=== PATIENT | male | born 1980 | race Caucasian/White ===

== ENCOUNTER 2017-03-25 10:10 | Emergency (ER) | payer SELFPAY ==
[~2017-03-25] VITALS: Ht 170.2 cm; Wt 63.5 kg
--- OUTSIDE RECORDS SUMMARY | 2017-03-25 10:17 | External Medical Summary Rpt | CCD ---
Author Author , LIBBY SOUZA Address Unknown Phone [email or web address] Purpose Continuity of Care Document - through 2016
--- OUTSIDE RECORDS SUMMARY | 2017-03-25 10:17 | External Medical Summary Rpt | CCD ---
Author Author , LIBBY SOUZA Address Unknown Phone [email or web address] Purpose Continuity of Care Document - through 2016
--- OUTSIDE RECORDS SUMMARY | 2017-03-25 10:17 | External Medical Summary Rpt | CCD ---
Demographics Preferred Language Ivorian Marital Status Unknown Orthodox Affiliation Unknown Race Unknown Ethnic Group Unknown Author Author , LIBBY SOUZA Address Unknown Phone Immunization No patient found.
--- OUTSIDE RECORDS SUMMARY | 2017-03-25 10:17 | External Medical Summary Rpt | CCD ---
Author Author [facility] Address Unknown Phone Unavailable Purpose Continuity of Care Document - through 2016
--- OUTSIDE RECORDS SUMMARY | 2017-03-25 10:17 | External Medical Summary Rpt | CCD ---
Demographics Preferred Language [place] Marital Status Unknown Latter Day Affiliation Unknown Race Unknown Ethnic Group Unknown Author Author , LIBBY SOUZA Address Unknown Phone Immunization No patient found.
--- NOTE | 2017-03-25 10:22 | Urgent Treatment Center Report ---
History of Present Issue Date/Time Seen by Provider 03/25/17 1021 Visit Reason Pt arrived: Presenting Problem: Location if Accident: Onset of symptoms date/time:/ or onset unknown for: Have you (or family members/close friends) recently traveled outside the [place]? If Yes, where/when: Have you had exposure to infectious disease within the past month? TB? Other? Specify: Source patient, RN notes reviewed Exam Limitations no limitations Comment Patient fell out of deer stand approximately 1.5 hours ago. Fell approximately 10-12 feet, landing on right side. Has pain in right rib area. No shortness of breath. No lacerations. ALLERGIES Coded Allergies: No Known Allergies (03/25/17) Home Medications Reported Medications No Known Home Medications History Medical History Immunization HX Ped.Immunizations UTD No Surgical Hx Previous Surgery?N Review of Systems All Other Systems Reviewed and Negative Musculoskeletal see HPI Physical Exam Vital Signs Vital Signs Date Time Temp Pulse Resp B/P Pulse O2 O2 Flow FiO2 Ox Delivery Rate 03/25 1021 98.0 68 20 108/68 97 General Appearance normal appearance, no apparent distress Respiratory Status Yes: tender on palpation. No: respiratory distress, chest symmetrical. Lung Sounds bilateral: normal breath sounds, lungs clear. Cardiovascular normal exam, regular rate/rhythm, no peripheral edema, no gallop, no JVD, no murmur, no rub Gastrointestinal normal bowel sounds, normal exam, non tender Back normal inspection, no CVA tenderness, no vertebral tenderness Extremities non-tender, normal range of motion, normal inspection, normal capillary refill Neurologic alert, normal exam, oriented x 3 Mental status normal mood/affect Medical Decision Making LABS/Meds/Orders Pt receiving controlled substance in ED? No Results/Orders Orders Procedure Date/time Status [id number] VIEWS 03/25 1024 Active XRAY/CT/US XRAY/CT/US XRAY rib XR interpretation by discussed w/radiologist Xray Results fx, minimally displaced, right 3rd/4th ribs Departure Departure Time of Disposition 1108 Disposition DC Home or Self Care(routine) Clinical Impression Primary Impression: Right rib fracture Qualifiers: Encounter type: initial encounter Rib fracture type: multiple ribs Fracture type: closed Qualified Code: S22.41XA - Multiple fractures of ribs, right side, initial encounter for closed fracture Condition STABLE Patient Instructions DI for Rib Fracture Additional Instructions Rest, minimal pulling/lifting Discharge Counseling Counseled pt/family regarding diagnosis, test results, medications/RX, home care, follow up needs Prescriptions Current Visit Scripts NAPROXEN (NAPROSYN 500MG TAB) 500 MG PO BID #28 TAB at 1110
--- NOTE | 2017-03-25 10:51 | RADIOLOGY REPORT PS360 ---
[id number] VIEWS HISTORY: Right-sided chest pain following injury FELL OUT OF A TREE STAND ORDERING PHYSICIAN: DIETER SILVERIO PATIENT AGE: 37 years COMPARISON: None FINDINGS: A frontal view of the chest shows no acute finding. Multiple views of the right ribs were obtained. There is a mildly displaced fracture involving the lateral aspect of the right third rib and a nondisplaced fracture involving the lateral aspect of the right fourth rib. No other fractures apparent. No effusion or pneumothorax. IMPRESSION: Right third and fourth rib fractures
[2017-03-25] MEDS ORDERED: NAPROSYN 500MG500 MG PO (11:10)
[2017-03-25 11:13] VITALS: BP 108/68
== END 2017-03-25 11:14 | disposition home or self-care (01) ==
LOC: UTC 10:10
DX: S22.41XA Multiple fractures of ribs, right side, initial encounter for closed fracture (principal); W17.89XA Other fall from one level to another, initial encounter; Y92.89 Other specified places as the place of occurrence of the external cause